=== PATIENT | female | born 1965 | race Two or more races ===

== ENCOUNTER → 2025-07-04 | Outpatient (CLI) | payer OTHER, SELFPAY ==
--- NOTE | 2025-07-04 12:11 | EKG_ITS ---
[facility] Test Date: 2025-07-04 Pat Name: PAT MARTE Department: Room: - Gender: Female [employer]: HUGO : 1965 Requested By: Radha Castro Order Number: [id number] Reading MD: Radha Castro Measurements Intervals [place] Rate: 65 P: 21 SC: 127 QRS: 56 QRSD: 97 T: 29 QT: 396 QTc: 412 Interpretive Statements SINUS RHYTHM No previous ECG available for comparison /[id number]
[2025-07-04 13:32] LABS: Anion Gap 10 (7-16); BUN/Creatinine Ratio 9 Ratio (12-20); Blood Urea Nitrogen 8 mg/dL (9-23); Calcium 9.5 mg/dL (8.3-10.6); Carbon Dioxide 26.3 mMol/L (20.0-31.0); Chloride 106 mMol/L (98-107); Creatinine (Component) 0.9 mg/dL (0.6-1.3); Glucose 101 mg/dL (74-106); Osmolality,Calculated 281 (275-295); Potassium 4.3 mMol/L (3.4-5.1); Sodium 142 mMol/L (136-145); eGFR > 60 See Note
== END | disposition home or self-care (01) ==
PROVIDERS: PCP Family Medicine; Referring Provider Physician Assistant; Visit Provider Physician Assistant
DX: Z01.818 Encounter for other preprocedural examination (principal); S63.641A Sprain of metacarpophalangeal joint of right thumb, initial encounter; Z01.810 Encounter for preprocedural cardiovascular examination
CPT/HCPCS: 36415; 80048; 93005